=== PATIENT | female | born 1965 | race African-American/Black ===

== ENCOUNTER 2021-08-18 09:22 | Emergency (ER) | payer OTHER ==
[~2021-08-18] VITALS: Ht 167 cm; Wt 82.0 kg
[2021-08-18] MEDS ORDERED: ORPHENADRINE 60 MG/2 ML (NORFLEX) AMP (ED ONLY) IM ONE (11:45)
[2021-08-18] MEDS ORDERED: HYDROcodone/APAP 5 MG/325 MG (LORTAB) TAB PO ONE (11:45)
--- NOTE | 2021-08-18 11:46 | ED Upper Extremity ---
General Chief Complaint: Upper Extremity Stated Complaint: R ARM PAIN,NUMBNESS Nursing Triage Note: PT ORIGINALLY BROUGHT BACK BY CAROL WHO THEN BROUGHT BACK A CODE HER PT. PT ARRIVED WITH RIGH ARM WEAKNESS AND NUMBNESS 1 WEEK AFTER A FALL. Source: patient Exam Limitations: no limitations History of Present Illness Date Seen by Provider: Aug 18, 2021 Time Seen by Provider: 11:46 Initial Comments This well-appearing 55-year-old female who presented to the ER with complaints of pain in her right arm x1 week. States that she was walking her dog and it pulled the leash really hard causing her to fall. States her pain has progressively worsened over the past week and feels that she is having increased weakness as well as numbness in her fingers in her right hand. She was not treated initially after the fall, denies any head injury or neck pain from fall. No other injuries reported. Allergies and Home Medications Allergies Coded Allergies: Penicillins (Verified Adverse Reaction, Unknown, UPSET STOMACH, 08/18/21) codeine (Verified Adverse Reaction, Unknown, UPSET STOMACH, 08/18/21) Patient Home Medication List Home Medication List Reviewed: Yes Cyclobenzaprine HCl (Cyclobenzaprine HCl) 10 Mg Tablet, 10 MG PO Q8H PRN for PAIN-BREAKTHROUGH Prescribed by: SANG DELONG on 08/18/21 1332 Diclofenac Sodium (Voltaren Arthritis Pain) 1 % Gel..gram., 1 APPFUL TP QID PRN for PAIN-MILD (1-4) Prescribed by: SANG DELONG on 08/18/21 1332 Oxycodone HCl/Acetaminophen (Oxycodone-Acetaminophen 5-325) 5 Mg-325 Mg Tablet, 1 EACH PO Q6H PRN for PAIN-SEVERE Prescribed by: SANG DELONG on 08/18/21 1332 Prednisone (Prednisone) 20 Mg Tab, 40 MG PO DAILY Prescribed by: SANG DELONG on 08/18/21 1333 Review of Systems Constitutional: no symptoms reported EENTM: no symptoms reported Respiratory: no symptoms reported Cardiovascular: no symptoms reported Gastrointestinal: no symptoms reported Genitourinary: no symptoms reported Musculoskeletal: muscle pain, muscle stiffness, neck pain, other (right shoulder pain ) Skin: no symptoms reported Psychiatric/Neurological: No Symptoms Reported Physical Exam Vital Signs Vital Signs - First Documented 08/18/21 10:37 Temp 36.7 Pulse 66 Resp 21 B/P (MAP) 122/89 (100) Pulse Ox 100 O2 Delivery Room Air Capillary Refill : Less Than 3 Seconds Height, Weight, BMI Height: '" Weight: lbs. oz. kg; 29.00 BMI Method: General Appearance: WD/WN HEENT: PERRL/EOMI, normal ENT inspection, pharynx normal Neck: full range of motion, normal inspection Cardiovascular: regular rate, rhythm, no murmur Respiratory: lungs clear, normal breath sounds, no respiratory distress, no accessory muscle use Gastrointestinal: normal bowel sounds, non tender, soft Back: normal inspection, no vertebral tenderness Shoulder: normal inspection; No asymmetry, No bone tenderness, No ecchymosis; limited ROM (guarding ), pain (right paraspinous and trapeze muscle tenderness ), soft tissue tenderness Elbow/Forearm: normal inspection, non-tender, no evidence of injury, normal ROM, Right, Left Wrist: Yes normal inspection, Yes non-tender, Yes no evidence of injury, Yes normal ROM Hand: normal inspection, non-tender, no evidence of injury, normal ROM Neurologic/Tendon: normal sensation, normal motor functions, normal tendon functions Neurologic/Psychiatric: no motor/sensory deficits, alert, normal mood/affect, oriented x 3 Skin: normal color, warm/dry Progress/Results/Core Measures Results/Orders My Orders Medications Given in ED Vital Signs/I&O Blood Pressure Mean: 100 Progress Progress Note : Progress Note Patient examined and in no acute distress. Was given hydrocodone for pain which she reported no improvement with. Imaging of her right shoulder does not show any acute fractures or dislocations. She does have significant cervical tila nosis on her CT findings with no acute fractures. We will go ahead and change her home medication to oxycodone as needed for severe pain, Voltaren gel, prednisone. Given a shot of fentanyl prior to discharge which she states brought her pain to 0 out of 10. Discharge POC reviewed and she is agreeable with plan. Diagnostic Imaging Diagonstic Imaging: CT Plain Films/CT/US/NM/MRI: c-spine Comments NAME: KENYON MCCARTNEY [facility] REC#: [id number] PT STATUS: DEP ER : 1965 PHYSICIAN: SANG DELONG VARNISH COOKER ADMIT DATE: 08/18/21/ER Signed Date of Exam:08/18/21 CT CERVICAL SPINE WO CLINICAL INDICATION: Patient with right arm weakness and numbness one week after a fall. EXAM: Axial CT scan of the cervical spine performed without IV contrast with sagittal and coronal reformatted images. Auto Exposure Controls were utilized during the CT exam to meet ALARA standards for radiation dose reduction. COMPARISON: None. FINDINGS: There is no acute cervical spine fracture. There is reversal of cervical lordosis. There is grade 1 anterolisthesis of C4 on C5 with no pars defect. There are multilevel cervical spine degenerative spurs which are most pronounced at the C5-C6 level. There is the appearance of diffuse disk bulge at C5-C6 level with moderate loss of disk space height and bilateral uncinate spurs. There is severe right C5-C6 neural foramen narrowing. There is qecsjdzp-ge-elnvjs left C4-C5 neural foramen narrowing due to facet arthropathy. There is ggelllen-zr-sajcvb right T2-T3 neural foramen narrowing and facet arthropathy. There is no significant neck soft tissue abnormality. Visualized upper lung sparrow show emphysematous disease. IMPRESSION: 1: There is no acute cervical spine fracture. 2: There is multilevel cervical spine degenerative disease, which is described above. Dictated by: Dictated on workstation # [id number] Dict: 08/18/21 1221 Trans: 08/18/211715 AS6 [id number] Interpreted by: ZURDO HINDS MD Electronically signed by: ZURDO HINDS MD 08/18/211715 Reviewed: Reviewed by Me Diagonstic Imaging: Xray Comments [facility] [place] NAME: KENYON MCCARTNEY Ara [facility] REC#: [id number] PT STATUS: REG ER : 1965 PHYSICIAN: SANG DELONG APRN ADMIT DATE: 08/18/21/ER Signed Date of Exam:08/18/21 HUMERUS, RIGHT, 2 VIEWS CLINICAL INDICATION: Patient with shoulder and arm pain. EXAMS: 1: X-ray of the right shoulder, 3 views. 2: X-ray of the right humerus, 2 views. COMPARISON: None. FINDINGS: X-rays of the right shoulder and right humerus show no acute fracture or dislocation. The right acromioclavicular region is unremarkable. The glenohumeral joint is intact. The elbow joint region shows no significant abnormality. There is no acute abnormality involving the visualized portions of the right hemithorax. IMPRESSION: X-rays of the right shoulder and right humerus show no acute fracture or dislocation. Dictated by: Dictated on workstation # [id number] Dict: 08/18/21 1230 Trans: 08/18/21 1312 [id number] Interpreted by: ZURDO HINDS MD Electronically signed by: ZURDO HINDS MD 08/18/21 131 Diagonstic Imaging: Xray Comments [facility] [place] NAME: KENYON MCCARTNEY [facility] REC#: [id number] PT STATUS: DEP ER : 1965 PHYSICIAN: SANG DELONG APRN ADMIT DATE: 08/18/21/ER Signed Date of Exam:08/18/21 SHOULDER, RIGHT, 3 VIEWS CLINICAL INDICATION: Patient with shoulder and arm pain. EXAMS: 1: X-ray of the right shoulder, 3 views. 2: X-ray of the right humerus, 2 views. COMPARISON: None. FINDINGS: X-rays of the right shoulder and right humerus show no acute fracture or dislocation. The right acromioclavicular region is unremarkable. The glenohumeral joint is intact. The elbow joint region shows no significant abnormality. There is no acute abnormality involving the visualized portions of the right hemithorax. IMPRESSION: X-rays of the right shoulder and right humerus show no acute fracture or dislocation. Dictated by: Dictated on workstation # [id number] Dict: 08/18/21 1230 Trans: 08/18/21 171 [id number] Interpreted by: ZURDO HINDS MD Electronically signed by: ZURDO HINDS MD 08/18/21 171 Departure Impression Primary Impression: CERVICAL DISC DISORDER W RADICULOPATHY, UNSP CERVICAL REGION Disposition: 01 HOME, SELF-CARE Condition: Improved Departure-Patient Inst. Decision time for Depature: 13:21 Referrals: [facility] (PCP) Primary Care Physician AUDI OTERO (Family) Primary Care Physician Patient Instructions: Discoid Lupus Add. Discharge Instructions: Plan: 1. Take Prednisone daily as directed with food. 2. May use ice/heat 20 minute at a time for comfort. 3. May use Voltaren Gel four times a day for pain. Apply thin layer. 4. Have close follow up with your primary care provider. Take copy of your CT report with you. 5. Return to ER for any new, concerning, or worsening symptoms. 6. You have been prescribed Oxycodone for pain with muscle relaxer, these medications may cause you to be very sleep. Avoid taking to close together. Do not drive while taking. All discharge instructions reviewed with patient and/or family. Voiced understanding. Scripts Prednisone (Prednisone) 20 Mg Tab 40 MG PO DAILY for 4 Days, #8 TAB 0 Refills Prov: SANG DELONG VARNISH COOKER 08/18/21 Diclofenac Sodium (Voltaren Arthritis Pain) 1 % Gel..gram. 1 APPFUL TP QID PRN for PAIN-MILD (1-4), #20 GM Prov: SANG DELONG VARNISH COOKER 08/18/21 Cyclobenzaprine HCl (Cyclobenzaprine HCl) 10 Mg Tablet 10 MG PO Q8H PRN for PAIN-BREAKTHROUGH, #30 TAB 0 Refills Prov: SANG DELONG VARNISH COOKER 08/18/21 Oxycodone HCl/Acetaminophen (Oxycodone-Acetaminophen 5-325) 5 Mg-325 Mg Tablet 1 EACH PO Q6H PRN for PAIN-SEVERE MDD 6, #14 TAB 0 Refills Prov: SANG DELONG VARNISH COOKER 08/18/21 SANG DELONG VARNISH COOKER Aug 18, 2021 11:46
--- NOTE | 2021-08-18 12:35 | Diagnostic Imaging Report ---
CLINICAL INDICATION: Patient with shoulder and arm pain. EXAMS: 1: X-ray of the right shoulder, 3 views. 2: X-ray of the right humerus, 2 views. COMPARISON: None. FINDINGS: X-rays of the right shoulder and right humerus show no acute fracture or dislocation. The right acromioclavicular region is unremarkable. The glenohumeral joint is intact. The elbow joint region shows no significant abnormality. There is no acute abnormality involving the visualized portions of the right hemithorax. IMPRESSION: X-rays of the right shoulder and right humerus show no acute fracture or dislocation. Dictated by: Dictated on workstation # [id number]
--- NOTE | 2021-08-18 12:41 | Diagnostic Imaging Report ---
CLINICAL INDICATION: Patient with right arm weakness and numbness one week after a fall. EXAM: Axial CT scan of the cervical spine performed without IV contrast with sagittal and coronal reformatted images. Auto Exposure Controls were utilized during the CT exam to meet ALARA standards for radiation dose reduction. COMPARISON: None. FINDINGS: There is no acute cervical spine fracture. There is reversal of cervical lordosis. There is grade 1 anterolisthesis of C4 on C5 with no pars defect. There are multilevel cervical spine degenerative spurs which are most pronounced at the C5-C6 level. There is the appearance of diffuse disk bulge at C5-C6 level with moderate loss of disk space height and bilateral uncinate spurs. There is severe right C5-C6 neural foramen narrowing. There is juamugid-jf-edzbpc left C4-C5 neural foramen narrowing due to facet arthropathy. There is kadzzytx-cl-fxlcjo right T2-T3 neural foramen narrowing and facet arthropathy. There is no significant neck soft tissue abnormality. Visualized upper lung sparrow show emphysematous disease. IMPRESSION: 1: There is no acute cervical spine fracture. 2: There is multilevel cervical spine degenerative disease, which is described above. Dictated by: Dictated on workstation # [id number]
[2021-08-18] MEDS ORDERED: predniSONE 20 MG TAB PO ONE (13:15)
[2021-08-18] MEDS ORDERED: fentaNYL INJ 100 MCG/2 ML AMP IM ONE (13:15)
[2021-08-18] MEDS ORDERED: CYCL10TA25 PO (13:32)
[2021-08-18] MEDS ORDERED: DICL20GE TP (13:32)
[2021-08-18] MEDS ORDERED: OXYC1TAB11 PO (13:32)
[2021-08-18] MEDS ORDERED: PRD20T PO (13:33)
[2021-08-18 13:45] VITALS: BP 143/87
== END 2021-08-18 13:45 | disposition home or self-care (01) ==
LOC: EDUNIT# 09:22 → ER 09:24
DX: M50.10 Cervical disc disorder with radiculopathy, unspecified cervical region (principal); Z88.5 Allergy status to narcotic agent
CPT/HCPCS: 72125; 73030; 73060; 93005

== ENCOUNTER → 2021-08-21 | Outpatient (CLI) | payer OTHER ==
[~2021-08-21] MED LIST: CYCL10TA25 PO; DICL20GE TP; OXYC1TAB11 PO; PRD20T PO
--- NOTE | 2021-08-21 11:18 | Diagnostic Imaging Report ---
CLINICAL INDICATION: Patient has right arm and neck pain. EXAM: MRI of the cervical spine without IV contrast. Sequences include sagittal T2, sagittal T1, and sagittal T2 fat-sat. Of note, patient was unable to hold still due to pain during this exam and did not renew or reschedule her pain medications and did not want to continue with axial sequences. COMPARISON: CT scan of the cervical spine without contrast dated 08/18/2021. FINDINGS: There is no acute cervical spine fracture. There is abnormal reversal of the cervical lordosis centered at the C5 level. Limited visualization of the posterior fossa is unremarkable. Cervical spinal cord shows no gross abnormality as visualized, but there is motion and CSF flow artifact slightly limiting evaluation. Of note, the degree of neural foramen narrowing is unable to be determined without the axial sequences. Comparison CT scan better evaluates neural foramina. C1-C2: There is no significant central canal narrowing. C2-C3: There is a small left paracentral disc spur which causes at least mild central canal narrowing. C3-C4: There is a small right uncinate spur. There is no significant central canal narrowing. C4-C5: There is no significant posterior disc bulge. There is left facet arthropathy/hypertrophy. There is no significant central canal stenosis. C5-C6: There is a diffuse disc bulge with moderate loss of disc space height and bilateral uncinate spurs with the right side worse than the left. There is moderate central canal stenosis. C6-C7: There is a small posterior disc herniation with mild central canal narrowing. C7-T1: There is bilateral facet arthropathy. There is no significant central canal narrowing. IMPRESSION: 1: Limited exam due to patient unable to continue imaging due to pain. Axial sequences were unable to be continued. 2: There is multilevel cervical spine degenerative disease, as described above. Dictated by: Dictated on workstation # [id number]
== END ==
LOC: RAD 09:30
PROVIDERS: ATTEND Physician Assistant
DX: M47.813 Spondylosis without myelopathy or radiculopathy, cervicothoracic region (principal); M50.30 Other cervical disc degeneration, unspecified cervical region; G56.91 Unspecified mononeuropathy of right upper limb
CPT/HCPCS: 72141